=== PATIENT | male | born 1985 | race Caucasian/White ===

== ENCOUNTER 2018-09-29 15:20 | Emergency (ER) | payer MEDICAID ==
[~2018-09-29] VITALS: Ht 175.3 cm; Wt 65.0 kg
[2018-09-29] MEDS ORDERED: SODIUM CHLORIDE 0.9% 1,000 ML IV ONE (16:11)
[2018-09-29 16:33] LABS: BASOPHILS % 0.5 % (0.0-2.0); EOSINOPHILS % 3.5 % (0.0-5.0); HEMATOCRIT. 44.1 % (42.0-52.0); HEMOGLOBIN. 15.1 g/dL (14.0-18.0); LYMPHOCYTES % 8.3 % (20.0-50.0); MEAN CORPUSCULAR HEMOGLOBIN 31.2 pg (28.0-32.0); MEAN CORPUSCULAR VOLUME 91.5 fL (80.0-94.0); MEAN PLATELET VOLUME 7.4 fl (7.4-10.4); MONOCYTES % 7.3 % (2.0-8.0); NEUTROPHILS % 80.4 % (40.0-76.0); PLATELET 146 x1000/uL (130-400); RED BLOOD CELL COUNT 4.82 mill/uL (4.7-6.1); RED CELL DISTRIBUTION WIDTH 14.6 % (11.6-14.6)
[2018-09-29 16:37] LABS: CHLORIDE 98 mEq/L (98-107)
[2018-09-29 16:41] LABS: ETHANOL BLOOD < 10 mg/dL
[2018-09-29] MEDS ORDERED: ACETAMINOPHEN 500MG TABLET PO ONE (17:00)
[2018-09-29] MEDS ORDERED: LEVETIRACETAM 1000MG/100ML 100 ML IV ONE (17:00)
[2018-09-29] MEDS ORDERED: ONDANSETRON 4MG ODT PO ONE (17:00)
[2018-09-29 17:50] VITALS: BP 122/64
[2018-09-29 18:03] LABS: CLARITY URINE CLEAR (CLEAR); COLOR URINE YELLOW (YELLOW); KETONES URINE 2+ (NEGATIVE); LEUKOCYTE ESTERASE URINE NEGATIVE (NEGATIVE); NITRITE URINE NEGATIVE (NEGATIVE); OCCULT BLOOD URINE TRACE (NEGATIVE); PH URINE 6.5 (4.5-8.0); PROTEIN URINE 2+ (NEGATIVE); SPECIFIC GRAVITY URINE 1.019 (1.005-1.030)
[2018-09-29 18:14] LABS: *AMPHETAMINES SCREEN URINE NEGATIVE (NEGATIVE)
[2018-09-29 18:15] LABS: *BARBITURATES SCREEN URINE NEGATIVE (NEGATIVE); *BENZODIAZEPINES SCREEN URINE NEGATIVE (NEGATIVE); *COCAINE SCREEN URINE NEGATIVE (NEGATIVE); CANNABINOID URINE SCREEN PRESUMTIVE POSITIVE (NEGATIVE); METHADONE URINE SCREEN NEGATIVE (NEGATIVE); OPIATES URINE SCREEN NEGATIVE (NEGATIVE); PHENCYCLIDINE URINE SCREEN NEGATIVE (NEGATIVE)
[2018-09-29] MEDS ORDERED: KETOROLAC 15MG/ML VIAL IV ONE (18:15)
== END 2018-09-29 18:53 | disposition home or self-care (01) ==
LOC: EDBD 15:20 → ER 15:20
DX: G40.909 Epilepsy, unspecified, not intractable, without status epilepticus (principal); S00.33XA Contusion of nose, initial encounter; R94.5 Abnormal results of liver function studies; R51 Headache; R31.9 Hematuria, unspecified; F12.10 Cannabis abuse, uncomplicated; Z90.49 Acquired absence of other specified parts of digestive tract; W01.0XXA Fall on same level from slipping, tripping and stumbling without subsequent striking against object, initial encounter; Y93.89 Activity, other specified; Y92.018 Other place in single-family (private) house as the place of occurrence of the external cause
CPT/HCPCS: 36415; 70450; 70486; 80053; 80305; 80320; 81003; 85025; 93005; 96365; 96375; 99284; J1885; J1953; J7030; Q0162; Z7610; G0480

== ENCOUNTER 2018-10-31 08:21 | Emergency (ER) | payer MEDICAID ==
[~2018-10-31] VITALS: Ht 172.7 cm; Wt 73.0 kg
[2018-10-31 09:04] VITALS: BP 122/78
== END 2018-10-31 09:05 | disposition home or self-care (01) ==
LOC: ER 08:21
DX: Z76.0 Encounter for issue of repeat prescription (principal); G40.909 Epilepsy, unspecified, not intractable, without status epilepticus
CPT/HCPCS: 99283

== ENCOUNTER 2018-12-11 11:19 | Emergency (ER) | payer MEDICAID ==
[~2018-12-11] VITALS: Ht 180.3 cm; Wt 68.0 kg
[2018-12-11 11:34] VITALS: BP 124/81
== END 2018-12-11 11:53 | disposition home or self-care (01) ==
LOC: ER 11:31
DX: R56.9 Unspecified convulsions (principal); Z76.0 Encounter for issue of repeat prescription; Z90.49 Acquired absence of other specified parts of digestive tract
CPT/HCPCS: 99283

== ENCOUNTER 2019-01-08 08:56 | Emergency (ER) | payer MEDICAID ==
[~2019-01-08] VITALS: Ht 172.7 cm; Wt 65.0 kg
[2019-01-08 09:19] VITALS: BP 138/75
== END 2019-01-08 09:20 | disposition home or self-care (01) ==
LOC: ER 09:07
DX: R56.9 Unspecified convulsions (principal); Z90.49 Acquired absence of other specified parts of digestive tract
CPT/HCPCS: 99282

== ENCOUNTER 2019-02-08 11:59 | Emergency (ER) | payer MEDICAID ==
[~2019-02-08] VITALS: Ht 180.3 cm; Wt 68.0 kg
[2019-02-08] MEDS ORDERED: KEPP500 MT (12:17)
[2019-02-08 13:30] VITALS: BP 145/85
== END 2019-02-08 13:31 | disposition home or self-care (01) ==
LOC: ER 11:59
DX: R56.9 Unspecified convulsions (principal); F17.200 Nicotine dependence, unspecified, uncomplicated; Z76.0 Encounter for issue of repeat prescription; Z90.49 Acquired absence of other specified parts of digestive tract
CPT/HCPCS: 99282; 99283

== ENCOUNTER 2019-05-08 11:03 | Emergency (ER) | payer MEDICAID ==
[~2019-05-08] VITALS: Ht 177.8 cm; Wt 70.0 kg
[~2019-05-08 11:03] MED LIST: KEPP500 MT
[2019-05-08 13:25] LABS: CHLORIDE 105 mEq/L (98-107)
[2019-05-08 13:28] LABS: BASOPHILS % 0.7 % (0.0-2.0); EOSINOPHILS % 4.2 % (0.0-5.0); HEMATOCRIT. 47.1 % (42.0-52.0); HEMOGLOBIN. 16.3 g/dL (14.0-18.0); LYMPHOCYTES % 25.3 % (20.0-50.0); MEAN CORPUSCULAR HEMOGLOBIN 32.2 pg (28.0-32.0); MEAN CORPUSCULAR VOLUME 92.5 fL (80.0-94.0); MEAN PLATELET VOLUME 7.4 fl (7.4-10.4); MONOCYTES % 5.3 % (2.0-8.0); NEUTROPHILS % 64.5 % (40.0-76.0); PLATELET 190 x1000/uL (130-400); RED BLOOD CELL COUNT 5.08 mill/uL (4.7-6.1); RED CELL DISTRIBUTION WIDTH 14.7 % (11.6-14.6)
[2019-05-08 14:02] LABS: ETHANOL BLOOD 296 mg/dL
[2019-05-08 15:32] LABS: *AMPHETAMINES SCREEN URINE NEGATIVE (NEGATIVE); *BARBITURATES SCREEN URINE NEGATIVE (NEGATIVE); *BENZODIAZEPINES SCREEN URINE NEGATIVE (NEGATIVE); *COCAINE SCREEN URINE NEGATIVE (NEGATIVE)
[2019-05-08 15:33] LABS: CANNABINOID URINE SCREEN NEGATIVE (NEGATIVE); METHADONE URINE SCREEN NEGATIVE (NEGATIVE); OPIATES URINE SCREEN NEGATIVE (NEGATIVE); PHENCYCLIDINE URINE SCREEN NEGATIVE (NEGATIVE)
[2019-05-08 18:17] VITALS: BP 120/76
== END 2019-05-09 18:15 | disposition home or self-care (01) ==
LOC: ER 11:03
DX: F32.3 Major depressive disorder, single episode, severe with psychotic features (principal); R45.851 Suicidal ideations; T51.0X1A Toxic effect of ethanol, accidental (unintentional), initial encounter; Y92.89 Other specified places as the place of occurrence of the external cause; Z63.5 Disruption of family by separation and divorce; R74.0 Nonspecific elevation of levels of transaminase and lactic acid dehydrogenase [LDH]; R03.0 Elevated blood-pressure reading, without diagnosis of hypertension; F17.210 Nicotine dependence, cigarettes, uncomplicated; Z71.6 Tobacco abuse counseling
CPT/HCPCS: 36415; 80053; 80305; 80307; 80320; 80329; 85025; 99283; 99406; G0480

== ENCOUNTER 2020-01-10 22:54 | Emergency (ER) | payer MEDICAID, MEDICARE ==
[~2020-01-10] VITALS: Ht 177.8 cm; Wt 73.0 kg
[2020-01-11] MEDS ORDERED: SODIUM CHLORIDE 0.9% 1,000 ML IV ONE (00:30)
[2020-01-11] MEDS ORDERED: LEVETIRACETAM 500MG PREMIX 100 ML IV ONE (00:30)
[2020-01-11 00:47] LABS: BASOPHILS % 0.3 % (0.0-2.0); EOSINOPHILS % 1.6 % (0.0-5.0); HEMATOCRIT. 42.4 % (42.0-52.0); HEMOGLOBIN. 14.7 g/dL (14.0-18.0); LYMPHOCYTES % 9.5 % (20.0-50.0); MEAN CORPUSCULAR HEMOGLOBIN 30.3 pg (28.0-32.0); MEAN CORPUSCULAR VOLUME 87.6 fL (80.0-94.0); MEAN PLATELET VOLUME 7.5 fl (7.4-10.4); MONOCYTES % 7.7 % (2.0-8.0); NEUTROPHILS % 80.9 % (40.0-76.0); PLATELET 143 x1000/uL (130-400); RED BLOOD CELL COUNT 4.84 mill/uL (4.7-6.1)
[2020-01-11 00:54] LABS: CHLORIDE 98 mEq/L (98-107)
[2020-01-11 03:31] VITALS: BP 128/82
== END 2020-01-11 03:34 | disposition home or self-care (01) ==
LOC: ER 22:54
DX: G40.909 Epilepsy, unspecified, not intractable, without status epilepticus (principal); J45.909 Unspecified asthma, uncomplicated; F32.9 Major depressive disorder, single episode, unspecified
CPT/HCPCS: 36415; 80053; 85025; 96365; 99284; J1953; J7030